=== PATIENT | female | born 1945 | race Caucasian/White ===

== ENCOUNTER → 2016-03-03 | Outpatient (CLI) | payer MEDICARE, BC ==
[~2016-03-03] MED LIST: ALBUTEROL2.5 MG/0.5 INH; AMBIEN5 MG PO; ASACOL PO; BUSPAR5 MG PO; CIPRO500 MG PO; CLONIDINE0.2 MG PO; DARVOCET N 1001 TAB PO; DELTASONE5 MG PO; DUONEB 3 MG/3 ML3 M1 INH; Duoneb 3ML 3 MG/3 ML INH; LISINOPRIL40 MG PO; MEDROL DOSEPAK4 MG PO; NORCO 5-325 TA1 EACH PO; NOVAPLUS V0.09 MG/Ac IH; OMEPRAZOLE40 MG PO; OXYBUTYNIN10 MG PO; OYSTER CALCIUM500 M1 PO; PRILOSEC20 MG PO; PRILOSEC40 MG PO; PROBIOTIC FORMU1 CA1 PO; PROBIOTIC250 MG PO; REGLAN10 MG PO; REMERON30 M1 PO; SERTRALINE HYDR50 MG PO; SINGULAIR10 MG PO; SPIRIVA18 MCG PO; SYMBICORT1 AE1 INH; VERAPAMIL120 MG PO; VICODIN 500 MG-1 TAB PO; XANAX1 MG PO; ZETIA10 MG PO; ZOLOFT100 MG PO; ZOLOFT50 MG PO
--- NOTE | ~2016-03-03 | HM ---
[place], [place] HOLTER MONITOR REPORT NAME: SARAH MEJÍA UNIT #: [id number] ROOM: DOCTOR: KATERINA LAINEZ [facility] BIRTHDATE: [birth year] DOS: 03/03/2016 1. Sinus rhythm. 2. Sinus bradycardia, 1 episode of 45 beats per minute. Average rate is 64. No significant tachyarrhythmias. One episode of nonsustained ventricular tachycardia. No conduction abnormalities noted. Holter monitor appears to be fairly benign. No diary entries are noted. No significant or symptomatic during the Holter monitor recording. ALEXANDRIA BORGES MD CM:HOLTER:HOLTER MONITOR REPORT [id number] ALEXANDRIA BORGES MD [facility]
== END | disposition home or self-care (01) ==
LOC: CARD 10:00
DX: I48.0 Paroxysmal atrial fibrillation (principal)

== ENCOUNTER 2016-07-21 21:43 | Emergency (ER) | payer MEDICARE, BC ==
[~2016-07-21] VITALS: Ht 160 cm; Wt 73.5 kg
[2016-07-21 21:49] VITALS: BP 155/100
[2016-07-21] MEDS ORDERED: K-TAB20 MEQ PO (23:49)
== END 2016-07-22 01:03 | disposition home or self-care (01) ==
LOC: ED 21:43
DX: E87.6 Hypokalemia (principal); I10 Essential (primary) hypertension; Z79.899 Other long term (current) drug therapy

== ENCOUNTER → 2016-12-19 | Day surgery (SDC) | payer MEDICARE, BC ==
[~2016-12-19] VITALS: Ht 157.4 cm; Wt 75.7 kg
[~2016-12-19] MED LIST changes: +CARTIA XT120 MG PO; +DICYCLOMINE HCL10 MG PO; +FERROUS SULFAT325 MG PO; +K-TAB20 MEQ PO; +LISINOPRIL20 MG PO; +METOPROLOL TART50 M1 PO
--- NOTE | ~2016-12-19 | O ---
[place], [place] OPERATIVE NOTE NAME: [facility]A [id number] UNIT #: [id number] ROOM: [facility] [birth year] DOS: GASTRO-ENDOSCOPIC REPORT HISTORY OF PRESENT ILLNESS: A 71-year-old patient who has presented with chief complaint of diarrhea, she says 5 to 6 BMs per day. She had been on Asacol for a year, then she quit taking Asacol because of the diarrhea. ALLERGIES: To no known medication. PAST SURGICAL HISTORY: Noncontributory. PAST MEDICAL HISTORY: Hypertension, COPD. SOCIAL HISTORY: Two pack smoker who had stopped 2 years ago. Social alcohol consumer. FAMILY HISTORY: Noncontributory. PROCEDURE: Today's procedure part of investigation is colonoscopy plus biopsy plus piecemeal polypectomy. PREMEDICATION: Versed and Diprivan. SCOPE: Olympus forward-viewing colonoscope 10L video. REPORT: After putting the patient in the left lateral position and after application of lubricant to the scope, the scope was introduced. Thereafter, under direct visualization, I advanced through the length of colon with difficulty. Difficulty being tortuosity of sigmoid colon. Right colon was approached, there was thick stool throughout ascending colon. We cannot ascertain if the cecum has been has reached or not, however, suspected to be. Photographic series from retained stool was obtained. Biopsies randomly obtained to rule out collagenous colitis and a sessile polypoid lesion in the rectal pouch with piecemeal polypectomy removed. Tolerated the procedure well, extubated. Abdomen remained soft. IMPRESSION: Tortuous sigmoid colon, retained stool, sessile colonic polyp of rectal pouch, status post piecemeal polypectomy, status post random biopsy of colon for chronic diarrhea. PLAN AND DISCUSSION: 1. I will start this patient on dicyclomine 10 mg 1 tablet every day to see if we can control her stooling and urgency. 2. I am going to get the celiac sprue panel on her to assure that she is not having gluten enteropathy. We are going to await biopsy results. She is going to visit with us in GI Clinic in 2 weeks. Once the data is available, we will do modification. She has had a CT scan of the abdomen and pelvis done in 2013. Since I remain unconvinced about her status of diarrhea yet after colonic prep having retention of the stool and I wonder if there is other occult pathology on [place], [place] OPERATIVE NOTE NAME: SARAH MEJÍA UNIT #: [id number] ROOM: DOCTOR: TALISHA ALINEZ,AMI BIRTHDATE: [birth year] board. We are going to order a CT scan of the abdomen and pelvis on her and should there be any concerns on the results, we may have to do a barium enema study on her that is due to the fact that repeatedly we have found that she has retention of stool and no clear colon, despite the preps yet complaining of diarrhea. AMI WOODALL MD CM:OPRECORD:OPERATIVE NOTE 1249 AMI WOODALL MD 12/19/166 interface
[2016-12-19 11:14] VITALS: BP 181/66
[2016-12-19 12:40] VITALS: BP 132/69
[2016-12-19 12:55] VITALS: BP 152/94
[2016-12-19 13:10] VITALS: BP 158/88
== END | disposition home or self-care (01) ==
LOC: SDC 12-16 12:30
DX: K51.90 Ulcerative colitis, unspecified, without complications (principal); D12.5 Benign neoplasm of sigmoid colon; I11.0 Hypertensive heart disease with heart failure; I50.9 Heart failure, unspecified; J44.9 Chronic obstructive pulmonary disease, unspecified; Z87.891 Personal history of nicotine dependence; K21.9 Gastro-esophageal reflux disease without esophagitis; F41.9 Anxiety disorder, unspecified; F32.9 Major depressive disorder, single episode, unspecified; Z79.899 Other long term (current) drug therapy; K63.89 Other specified diseases of intestine

== ENCOUNTER → 2016-12-26 | Outpatient (CLI) | payer MEDICARE, BC ==
[2016-12-26 09:06] LABS: CREATININE 1.04 mg/dL (0.55-1.02)
[2016-12-27 16:09] LABS: t-TRANSGLUTAMINASE (tTG) IGA <2 U/mL (0-3); t-TRANSGLUTAMINASE (tTG) IgG <2 U/mL (0-5)
[2016-12-29 14:05] LABS: ENDOMYSIAL ANTIBODY IgA Negative (Negative)
== END | disposition home or self-care (01) ==
LOC: LAB 07:38 → CT 09:00
PROVIDERS: Internal Medicine Gastroenterology
DX: K52.9 Noninfective gastroenteritis and colitis, unspecified (principal); K75.3 Granulomatous hepatitis, not elsewhere classified

== ENCOUNTER 2017-04-22 18:12 | Inpatient (IN) | payer MEDICARE ==
[~2017-04-22] VITALS: Ht 160 cm; Wt 88.1 kg
--- NOTE | ~2017-04-22 | EKG ---
[place], [place] ELECTROCARDIOGRAM REPORT NAME: SARAH MEJÍA UNIT #: [id number] ROOM: 408 DOCTOR: COLLINS MORALES MD,BOGDAN BIRTHDATE: [birth year] DOS: 04/22/2017 ELECTROCARDIOGRAM REPORT TIME: 6:36 p.m. Sinus rhythm noted with a heart rate of 93 beats per minute. LVH criteria was met for this patient. BOGDAN GUADALUPE MD CM:EKGRPT:ELECTROCARDIOGRAM REPORT [id number] BOGDAN MORALES MD
--- NOTE | ~2017-04-22 | WRIGHTHP ---
[place], [place] PATIENT HISTORY AND PHYSICAL EXAM NAME: SARAH MEJÍA [facility] #: [id number] UNIT #: [id number] ROOM: [facility] DOCTOR: ZACK COLLAZO MD BIRTHDATE: [birth year] DOS: 04/22/2017 HISTORY OF PRESENT ILLNESS: This patient is 71 years old. The patient is very well known to us. The patient comes in with increasing weakness and shortness of breath. The patient had called the office yesterday saying that she was having diarrhea, fever and she was also throwing up, thought that the patient may have a viral syndrome, Tamiflu was called in. The patient states that she did get the prescription and took 1 pill, but by evening, she was increasingly short of breath, so decided to come into the Emergency Room. By the time she arrived, she was quite hypoxic with a saturation in 67% on 6 liters of oxygen. She refused intubation, was placed on a BiPAP. She denies having any complaints this morning other than shortness of breath. Denies any chest pains or palpitations, has cough that is productive of scant amounts of sputum. Does not have any leg edema. PAST MEDICAL HISTORY: Significant for: 1. Chronic respiratory failure. 2. History of nicotine abuse. 3. Aortic aneurysm, awaiting surgery on 04/30/2017. 4. Generalized anxiety disorder. 5. Chronic back pain. 6. Benign hypertension. 7. Mixed hyperlipidemia. 8. Major depression, mild. MEDICATIONS: The patient currently on are Symbicort, breathing treatments, Xanax 1 mg t.i.d., buspirone 10 t.i.d., clonidine 0.2 daily, Bentyl 20 daily, diltiazem 120 daily, Zetia 10 daily, iron 325 daily, Prozac 40 daily, furosemide 40 daily, Fisher 5 twice a day, lisinopril 20 daily, metoprolol 50 t.i.d., Remeron 30 at bedtime, omeprazole 40 daily, Zoloft 100 daily. SOCIAL HISTORY: Smoker, but has not been smoking for the last few months. Denies using any alcohol. Lives at home with her . PHYSICAL EXAMINATION: GENERAL: She is awake and alert and oriented this morning. VITAL SIGNS: Blood pressure is 139/75, pulse of 80, respirations 25, temperature 99.1. LUNGS: Diminished breath sounds, scattered wheezes and rhonchi. HEART: Regular. ABDOMEN: Obese, soft, nontender. EXTREMITIES: Without any edema. ASSESSMENT AND PLAN: 1. Acute hypoxic respiratory failure. The patient was placed on BiPAP and she refused intubation. 2. Continue oxygen and breathing treatments. Dr. Santos has been consulted. 3. Chronic respiratory failure from chronic obstructive pulmonary disease with acute exacerbation. IV steroids have been ordered. 4. Acute tracheobronchitis, placed on antibiotics, also placed on her Tamiflu [place], [place] PATIENT HISTORY AND PHYSICAL EXAM NAME: SARAH MEJÍA UNIT #: [id number] ROOM: [facility] DOCTOR: ZACK COLLAZO MD BIRTHDATE: [birth year] which she has been taking at home, even though the rapid fluid has come back negative. 5. Benign hypertension, controlled. 6. Major depression. The patient somehow is on 2 SSRIs, will discontinue the Prozac. Continue sertraline and Remeron. 7. Generalized anxiety disorder, on medications with fair control, no changes being made. ZACK COLLAZO MD CM:HISPHYS:PATIENT HISTORY AND PHYSICAL EXAMINATION [id number] ZACK COLLAZO MD 04/23/17 0938 interface
--- NOTE | ~2017-04-22 | PR ---
[place], [place] PROGRESS NOTE NAME: [facility] [id number] UNIT #: [id number] ROOM: 408 DOCTOR: BOGDAN ROOT MD BIRTHDATE: [birth year] DOS: 04/25/2017 SUBJECTIVE: She has been noted unconsciousness at the present time with the respiratory distress. She has used the BiPAP, last night, when her daughter present in the room with the patient. She was not noted awake at this time. OBJECTIVE: VITAL SIGNS: Normal temperature, respiratory rate 24-22, heart rate 71-74, blood pressure 147/71 to 146/88, pulse oxygen saturation for the patient on 8 liter nasal cannula for this patient and with the simple mask was noted as a saturation of 92% saturation. HEENT: Head was atraumatic. CARDIOVASCULAR: S1, S2 audible. LUNGS: Diffuse expiratory wheezing. The patient has scattered crackles in the lungs. ABDOMEN: Mildly obese. Soft, nontender. EXTREMITIES: Without edema. LABORATORY DATA: CBC: Hemoglobin 8.2, hematocrit 27.1, WBC count normal, and platelet count was normal. IMPRESSION: 1. The patient with progressive lapse of consciousness, secondary to worsening of the respiratory failure, progressive. 2. Severe hypoxia, hypercapnic. 3. Respiratory failure. 4. Acute exacerbation of chronic obstructive pulmonary disease. 5. Comfort care code status. PLAN OF MANAGEMENT: At this time, the patient has not been doing well and noted with unconsciousness. Palliative care for the patient at this time to be continued. Hospice service should be assessed with this patient. At the present time, our prognosis of the patient remains poor. [place], [place] PROGRESS NOTE NAME: SARAH MEJÍA UNIT #: [id number] ROOM: 408 DOCTOR: BOGDAN ROOT MD BIRTHDATE: [birth year] OBGDAN GUADALUPE MD CM:PNTRANS [id number] BOGDAN MORALES MD 04/26/17 0515 interface
--- NOTE | ~2017-04-22 | PR ---
[place], [place] PROGRESS NOTE NAME: [facility]A [id number] UNIT #: [id number] ROOM: 408 DOCTOR: KATALINA HUBER MD BIRTHDATE: [birth year] DOS: 04/24/2017 SUBJECTIVE: The patient is still quite short of breath, wearing a BiPAP and getting nebulizer treatments. OBJECTIVE: VITAL SIGNS: Blood pressure 154/96, heart rate 84 beats per minute, breathing 20 times per minute, temperature 98.6 degrees Fahrenheit. GENERAL APPEARANCE: The patient is alert and oriented x 3, in no visible distress. HEENT AND NECK: Exam within normal limits. CARDIOVASCULAR SYSTEM: Heart rate is regular in rate and rhythm. S1 and S2 normally audible. LUNGS: Decreased breath sounds all over with expiratory wheezing. ABDOMEN: Soft, nontender. No obvious organomegaly. Bowel sounds are present. EXTREMITIES: Without significant cyanosis or edema. IMPRESSION: 2. The patient with acute hypoxemic ventilatory failure with shortness of breath and wheezing, being treated with BiPAP and bronchodilators, corticosteroids. Thread Spooler, Dr. Santos, is following. 3. Acute over chronic respiratory failure, being treated with BiPAP. 4. Acute exacerbation of severe underlying chronic obstructive pulmonary disease. 5. Benign essential hypertension being treated and controlled. 6. Major depression, recurrent, moderate, treated with Prozac. The patient also on Remeron. 7. Generalized anxiety disorder, being followed closely and treated. KATALINA HUBER MD CM:PNTRANS [phone] KATALINA HUBER MD 04/24/172053 interface
--- NOTE | ~2017-04-22 | DS ---
[place], [place] DISCHARGE SUMMARY NAME: SARAH MEJÍA [facility] #: [id number] UNIT #: [id number] ROOM: 408 DOCTOR: KATALINA HUBER MD BIRTHDATE: [birth year] DOS: 04/25/2017 DISCHARGE DIAGNOSES: 1. Chronic respiratory failure and end-stage lung disease. The patient is going home with hospice and her for end-of-life care. 2. Chronic ventilatory failure from advanced chronic obstructive pulmonary disease. 3. Benign essential hypertension. 4. Adult failure to thrive. 5. Major depression, recurrent, moderate. 6. Generalized anxiety disorder. 7. Nicotine smoke dependence. 8. Aortic aneurysm. 9. Chronic back pains. 10. Mixed hyperlipidemia. The patient was admitted by Dr. Libertad Tirado for acute over chronic respiratory failure. After admission, the patient was put on BiPAP and treated with bronchodilators, corticosteroids and antibiotics and BiPAP. The patient did not want BiPAP and finally after discussing the situation with Dr. Santos, the computer systems hardware analyst who was on consult, the patient and her and rest of the family decided to take her home with hospice care, which is being arranged. The patient appears comfortable, although she has some respiratory difficulty. The patient is being sent home with bronchodilators, morphine, Ativan and atropine drops and hospice has been consulted. A hospital bed will be arranged at home. Major depression, recurrent, moderate, being treated with Prozac, controlled. Benign essential hypertension. The patient on diltiazem. Blood pressures are monitored, treated and controlled. The patient also takes lisinopril and metoprolol. GERD and esophagitis, asymptomatic, on omeprazole. Severe generalized anxiety disorder, treated with Xanax on regular basis. The patient also takes buspirone. The patient maintains a DNR/comfort care code status and hospice care was discussed at great length with the family. One hour was spent with the patient, her family in discussions and also arranging for discharge to home today required more than 1 hour of my time. Acute tracheobronchitis, treated as mentioned above. Adult failure to thrive with disability. Hospital bed is being arranged. We took bedsore precautions including every 2 hour turning and we took fall precautions. LABORATORY DATA: Sputum cultures are pending. Normal serum electrolytes. Hemoglobin 8.2. Blood cultures were negative. Chest x-ray showed trace [facility] [place], [place] DISCHARGE SUMMARY NAME: SARAH MEJÍA UNIT #: [id number] ROOM: 408 DOCTOR: CECILE LAINEZ,KATALINA Aldrich BIRTHDATE: [birth year] pulmonary edema, some chronic pulmonary fibrosis and scarring, but no signs of pneumonia. BUN and creatinine 9 and 1.3, otherwise normal serum electrolytes. DISCHARGE MANAGEMENT: Morphine 10 mg every hour as needed, Ativan 2 mg every 4 hours as needed for agitation, ondansetron 8 mg 3 times a day as needed for nausea, vomiting, Zoloft 100 mg a day, lisinopril 20 mg a day, Zetia 10 mg, Cardizem-CD 120 mg a day, Bentyl 10 mg daily, Medrol Dosepak, mirtazapine 30 mg at bedtime, metoprolol 50 mg b.i.d., Dulera twice a day inhalations, DuoNeb q.i.d., Xanax 1 mg 3 times a day, buspirone 5 mg every 8 hours, hydrocodone 5/325 mg b.i.d. p.r.n. for pain. KATALINA HUBER MD CM:MARISELA [phone] KATALINA HUBER MD 04/25/171945 interface
--- NOTE | ~2017-04-22 | CON ---
[place], [place] REPORT OF CONSULTATION NAME: SARAH MEJÍA [facility] #: [id number] UNIT #: [id number] ROOM: 408 DOCTOR: COLLINS MORALES MD,BOGDAN BIRTHDATE: [birth year] DOS: 04/23/2017 CONSULTATION REQUESTED BY: Libertad Tirado MD REASON FOR CONSULTATION: Assess the patient for acute respiratory failure. HISTORY OF PRESENT ILLNESS: This is a 71-year-old white female who has been well known to me with past history of severe COPD with chronic hypercapnic and hypoxic respiratory failure. The patient stated symptoms of increasing shortness of breath occurring for the past 2 to 3 days. Later on the patient started with symptoms of body aches and pains as well. Symptoms were noted progressively worsening. Associated with diarrhea as well. She has contacted the office of Dr. Libertad Tirado yesterday and [facility] The patient suspecting influenza infection. The patient did took one medication yesterday. She stated symptoms of shortness of breath progressed very severely requiring assessment in the Emergency Room. The patient presented to the Emergency Room. Pulse oxygen saturation noted only 67%. In the Emergency Room was started on 6 liters oxygen supplementation nasal cannula to improve the hypoxia. Arterial blood gas was also done for the patient, which shows acute hypercarbia, chronic hypercarbia. She had been admitted to Intensive Care Unit. The patient was started on BiPAP, which was received only for short period of time by the patient. The patient denies symptoms of chest pain. Later on the oxygen supplementation has been gradually decreased. Denies symptoms of chest pain or hemoptysis. Symptoms of cough has been noted mild to moderate without any sputum expectoration. Shortness of breath has been noted, but somewhat decreased from admission. Wheezing was noted with tightness in the chest. REVIEW OF SYSTEMS: CONSTITUTIONAL: Symptoms of fatigue and tiredness reported, not sure about fever or chills. EYES: Denies any burning, redness, discharge or pain or diplopia. CARDIOVASCULAR: Denies anginal pain, edema, pain of the lower extremities. EARS, NOSE, THROAT: Denies sore throat, hoarseness, otalgia, postnasal drainage or epistaxis. GASTROINTESTINAL SYMPTOMS: The patient has reported diarrhea shortly and has not noted continuous at this time. There were symptoms of hematemesis, melena, or hematochezia. GENITOURINARY SYMPTOMS: Denies dysuria, suprapubic pain, hematuria, or urinary retention. MUSCULOSKELETAL: No acute joint pain, redness, or tenderness. SKIN: Denies any abnormal lesions or rashes. CENTRAL NERVOUS SYSTEM: Denies any symptoms of seizures or tingling sensation of the extremities. The remaining systems were reviewed, which were noted all negative. PAST MEDICAL HISTORY: 1. Has been noted with history of advanced end-stage COPD with FEV1 about 30%. 2. Chronic hypoxic respiratory failure requiring oxygen supplementation 3 liter nasal cannula. 3. Chronic hypercapnic respiratory secondary to severely advanced COPD as well. [place], [place] REPORT OF CONSULTATION NAME: SARAH MEJÍA UNIT #: [id number] ROOM: [employer] DOCTOR: COLLINS MORALES MD,BOGDAN BIRTHDATE: [birth year] 4. Severe generalized anxiety disorder. 5. History of essential hypertension. 6. Congestive heart failure with diastolic dysfunction. 7. Chronic atrial fibrillation. 8. Gastroesophageal reflux disease. 9. History of depression as well. PAST SURGICAL HISTORY: Noted essentially no major surgeries in the past. SOCIAL HISTORY: The patient is , has 2 children, lived at home prior to admission to the hospital. Denies history of alcohol use or illicit drug use. The patient has been known with tobacco use from the age of [age] years old, a pack of cigarettes per day that has not been continued as per patient since November 2013. She does not have any occupation related pulmonary exposure. FAMILY HISTORY: Father at age 3939 years old, complication of intracerebral hemorrhage. Mother at age 6868 years old, complication related to the metastatic breast cancer. CURRENT MEDICATIONS: Administered noted use of sertraline, lisinopril, ferrous sulfate, Zetia, Cardizem-CD, omeprazole, IV Solu-Medrol 60 mg q. 8 hours, Remeron, metoprolol tartrate 50 mg b.i.d., Dulera 200/5 two inhalations b.i.d., IV Zithromax, BuSpar, Tamiflu, and other p.r.n. medications administration. DRUG ALLERGIES: Noted as no known drug allergies. PHYSICAL EXAMINATION: GENERAL: A 71-year-old female patient who has been noted comfortable on oxygen supplementation about 4 liters nasal cannula, comfortably resting as seen in the Intensive Care Unit. The patient's height was recorded as 5 feet 3 inches, weight 194 pounds, BMI 30.5. VITAL SIGNS: Temperature 99.7 degree Fahrenheit, noted low grade fever intermittently since admission in the last 24 hours. Respiratory rate range between 18-24. Heart rate 93-70, blood pressure 150/70-146/67. Pulse oxygen saturation of the patient was noted as 97% with the Venturi mask earlier. HEENT: Examination shows head was atraumatic. Eyes nonicterus. NECK: Supple. CARDIOVASCULAR: S1, S2 audible. LUNGS: Diffuse reduction in breath sounds bilaterally with expiratory wheezing without any crackles. ABDOMEN: Soft, flat, nontender, bowel sounds present. EXTREMITIES: The patient noted without any edema, clubbing or cyanosis. CENTRAL NERVOUS SYSTEM: Cranial nerves 2-12 intact. No focal deficit. MUSCULOSKELETAL: Without any acute deformities. LABORATORY DATA: The lactic acid yesterday in the Emergency Room 2.1. PT, PTT yesterday in the Emergency Room, normal. CMP yesterday in the Emergency Room, BUN 9, creatinine 1.36, glucose 157. Carbon dioxide 36. Total protein 6.3, albumin was mildly decreased. CBC: Hemoglobin 8.5 and hematocrit 28.1, WBC count normal, platelet count was normal. Follow up lactic acid 0.6. Influenza [place], [place] REPORT OF CONSULTATION NAME: SARAH MEJÍA UNIT #: [id number] ROOM: [employer] DOCTOR: COLLINS MORALES MD,[facility] BIRTHDATE: [birth year] A and B, nasal washing antigens were noted as negative. Chest x-ray just 1 view done in the emergency room was noted with increased interstitial marking without any gross pulmonary infiltration. IMPRESSION: 1. The patient who has been currently admitted to the hospital noted with suspected diagnosis of influenza infection, complicated with severe acute hypercapnic and hypoxic respiratory failure, chronic hypoxic and hypercapnic respiratory failure. 2. Severe general anxiety disorder. 3. Past history of nicotine dependence. 4. Anemia, most likely chronic disease. 5. The patient with acute kidney injury. The patient was also noted with elevation in creatinine, most likely related to the current acute volume depletion and possibility of early acute sepsis as well is a likely cause. PLAN OF MANAGEMENT: Obtain another arterial blood gas of the patient to reassess the need for adjustment on the BiPAP treatment. The patient will be continued on current dose of high dose corticosteroids, Solu-Medrol 60 mg q. 8 hours. DuoNeb will be continued every 4 hours. She has already been collected culture for the urine as well as the blood. Sputum culture was ordered, which was pending. Titrate oxygen supplementation to maintain oxygen saturation 92% or greater. The patient may be transferred from the intensive unit to telemetry floor as the patient does not want any kind of resuscitation including CPR or others. Supportive therapy, plan of management as in progress. Encourage the patient's oral supplementation of the fluids. Obtain CMP and CBC in the morning as well. Continuation of flu medication. Usual care, other supportive plan of therapy and care. Thank you for allowing me to participate in the care of this patient. BOGDAN GUADALUPE MD CM:CONSTR:REPORT OF CONSULTATION 1356 04/24/17 0105 interface
--- NOTE | ~2017-04-22 | PR ---
[place], [place] PROGRESS NOTE NAME: SARAH MEJÍA [facility] #: [id number] UNIT #: [id number] ROOM: 408 DOCTOR: COLLINS MORALES MD,BOGDAN BIRTHDATE: [birth year] DOS: 04/24/2017 PULMONARY PROGRESS NOTE SUBJECTIVE: She has been noted with increased wheezing this morning at the time of the assessment. Cough has been noted moderately and noted nonproductive. Denies symptoms of chest pain, shortness breath was noted significantly as well. She was transferred to telemetry floor from the ICU yesterday. She has used the BiPAP for about 6 hours last night. The arterial blood gas was attempted for the patient not noticed exacerbation obtaining arterial blood gases after a few attempts. The patient denies symptoms of headache. General weakness, fatigue were noted. She was also noted with increased anxiety. Denies symptoms of hematuria. Denies any symptoms of abdominal pain. Remaining review of systems of the patient noted as negative. OBJECTIVE: VITAL SIGNS: For the patient which were recorded showed the temperature noted as normal. The respiratory rate of the patient recorded as 20-24, heart rate 84-94, blood pressure 154/96 to 166/93. HEENT: Shows head was atraumatic. Eyes nonicterus. NECK: Supple. Oral mucosa was dry. CARDIOVASCULAR: S1, S2 is audible. LUNGS: The patient noted diffuse expiratory wheezing with decreased breath sounds bilaterally. ABDOMEN: Soft with mild obesity. Bowel sounds present without any tenderness. SKIN: Visible skin. No lesions or rashes. MUSCULOSKELETAL SYMPTOMS: Without any acute deformities. CENTRAL NERVOUS SYSTEM: Remains intact. LABORATORY DATA: The cultures of the blood for the patient on 04/22/2017 showed no bacterial growths. IMPRESSION: 1. The patient noted with severe acute hypercapnic and hypoxic respiratory failure was noted at the present time with severe exacerbation of chronic obstructive pulmonary disease, worsening of the respiratory symptoms were noted today on assessment, noted severe expiratory wheezing. 2. The patient with a general anxiety disorder as well. 3. Acute bronchitis. 4. General weakness and fatigue. PLAN OF TREATMENT: The patient will be started on IV Rocephin for the additional treatment of the tracheobronchitis. The patient was also noted elevation of creatinine and will be ordered in a BMP of the patient to be done tomorrow morning. Collect the sputum for Gram stain and culture. The patient is able to expectorate sputum. Continue current high dose of corticosteroids, bronchodilators every 4 hours and use of the BiPAP. Additional treatment changes will be made for this patient based on the progression of the illness. Usual care. Supportive therapy, plan of management and other treatment for the patient as well. The patient's code status noted comfort care at this time, [place], [place] PROGRESS NOTE NAME: SARAH MEJÍA UNIT #: [id number] ROOM: [facility] DOCTOR: COLLINS MORALES MD,BOGDAN BIRTHDATE: [birth year] conservative treatment to be continued with the use of the BiPAP that was accepted as a part of the treatment by the patient with current code status. DVT prophylaxis to be continued. All other treatment therapy, plan of management and care. BOGDAN GUADALUPE MD CM:PNTRANS [id number] BOGDAN MORALES MD 04/25/17220 interface
[2017-04-22 18:31] LABS: ABG BASE EXCESS 6.3 mmol/L (-2.0-2.0); ABG HCO3 34.3 mmol/l (22-26); ARTERIAL BLOOD GAS PH 7.266 (7.35-7.45)
[2017-04-22 18:35] VITALS: BP 150/70
[2017-04-22 18:36] LABS: ABG O2 SATURATION 100.1 % (95-97); ARTERIAL BLOOD GAS PCO2 78.3 mmHg (35-45)
[2017-04-22 18:58] LABS: ACT PARTIAL THROMBO TIME 21.9 SECONDS (20.8-31.5)
[2017-04-22 19:00] VITALS: BP 132/88
[2017-04-22 19:05] LABS: ALBUMIN 3.2 gm/dl (3.1-4.5); ALKALINE PHOSPHATASE 98 U/L (45-117); BUN 9 mg/dl (7-24); CHLORIDE 96 mmol/L (98-107); CREATININE 1.36 mg/dL (0.55-1.02); POTASSIUM 3.6 mmol/L (3.5-5.1); SGOT/AST 18 IU/L (3-35); SGPT/ALT 20 U/L (12-78); SODIUM 136 mmol/L (136-145); TOTAL PROTEIN 6.3 gm/dL (6.4-8.2)
[2017-04-22 19:08] LABS: TROPONIN I < 0.015 ng/ml (<0.045)
[2017-04-22 19:31] VITALS: BP 130/60
[2017-04-22 19:44] VITALS: BP 148/53
[2017-04-22 20:03] LABS: BASO % 0.2 % (0.0-1.0); HEMATOCRIT 28.1 % (37.0-47.0); HEMOGLOBIN 8.5 g/dl (12.0-16.0); LYMPH # 0.4 10*3/uL (1.3-4.4); LYMPH % 7.9 % (27.0-41.0); MEAN CELL VOLUME 91.5 fl (81.0-99.0); MEAN CORPUSCULAR HGB 27.7 pg (27.0-31.0); MEAN CORPUSCULAR HGB CONC 30.2 g/dl (33.0-37.0); MEAN PLATELET VOLUME 10.3 fl (9.6-12.3); MONO # 0.2 10*3/uL (0.1-1.0); NEUT # 4.3 10*3/uL (2.3-7.9); NEUT % 88.1 % (47.0-73.0); PLATELET COUNT AUTOMATED 161 10*3/uL (130-400); RED BLOOD COUNT 3.07 10*6/uL (4.10-5.10); RED CELL DISTRI WIDTH 15.4 % (0-14.5); WHITE BLOOD COUNT 4.9 10*3/uL (4.8-10.8)
[2017-04-22] MEDS ORDERED: CATAPRES0.2 M1 PO (21:07)
[2017-04-22] MEDS ORDERED: LASIX40 MG PO (21:08)
[2017-04-22] MEDS ORDERED: COLCRYS0.6 M1 PO (21:09)
[2017-04-22] MEDS ORDERED: ZOFRAN8 M1 PO (21:12)
[2017-04-22] MEDS ORDERED: PROZAC40 M1 PO (21:13)
[2017-04-22] MEDS ORDERED: PROMETHAZINE25 M1 PO (21:14)
[2017-04-23] VITALS (7 sets, daily range): BP systolic 126–166; BP diastolic 58–93
[2017-04-23 02:36] LABS: BILIRUBIN NEGATIVE (NEGATIVE); BLOOD 3+ (NEGATIVE); CLARITY SL CLOUDY (CLEAR); COLOR YELLOW (YELLOW); GLUCOSE NEGATIVE (NEGATIVE); KETONE NEGATIVE (NEGATIVE); LEUKO ESTERASE NEGATIVE (NEGATIVE); NITRITE NEGATIVE (NEGATIVE); PH 5.5 (5.0-9.0); UROBILINOGEN 0.2 E.U./dl (0.2-1.0)
[2017-04-23 02:45] LABS: BACTERIA 2+; EPITHELIAL CELLS 20-25; HYALINE CAST 40-45; RBC 41-50 rbc/hpf (0-2)
[2017-04-24 08:00] VITALS: BP 154/96
[2017-04-24 12:00] VITALS: BP 150/88
[2017-04-24 14:00] VITALS: BP 150/88
[2017-04-24 16:00] VITALS: BP 140/76
[2017-04-24 20:00] VITALS: BP 140/80
[2017-04-25] VITALS: BP 150/90
[2017-04-25 06:18] LABS: HEMATOCRIT 27.1 % (37.0-47.0); HEMOGLOBIN 8.2 g/dl (12.0-16.0); LYMPH # 0.7 10*3/uL (1.3-4.4); LYMPH % 8.6 % (27.0-41.0); MEAN CELL VOLUME 92.8 fl (81.0-99.0); MEAN CORPUSCULAR HGB 28.1 pg (27.0-31.0); MEAN CORPUSCULAR HGB CONC 30.3 g/dl (33.0-37.0); MEAN PLATELET VOLUME 9.9 fl (9.6-12.3); MONO # 0.4 10*3/uL (0.1-1.0); NEUT # 6.9 10*3/uL (2.3-7.9); NEUT % 85.5 % (47.0-73.0); PLATELET COUNT AUTOMATED 197 10*3/uL (130-400); RED BLOOD COUNT 2.92 10*6/uL (4.10-5.10); RED CELL DISTRI WIDTH 15.9 % (0-14.5); WHITE BLOOD COUNT 8.1 10*3/uL (4.8-10.8)
[2017-04-25 06:34] LABS: ALBUMIN 3.4 gm/dl (3.1-4.5); BUN 19 mg/dl (7-24); CHLORIDE 88 mmol/L (98-107); CREATININE 0.87 mg/dL (0.55-1.02); POTASSIUM 4.2 mmol/L (3.5-5.1); SGOT/AST 26 IU/L (3-35); SGPT/ALT 25 U/L (12-78); SODIUM 132 mmol/L (136-145); TOTAL PROTEIN 6.8 gm/dL (6.4-8.2)
[2017-04-25 06:35] LABS: ALKALINE PHOSPHATASE 83 U/L (45-117)
[2017-04-25 08:00] VITALS: BP 146/88
[2017-04-25 12:00] VITALS: BP 147/71
[2017-04-25] MEDS ORDERED: MEDROL DOSEPAK4 MG PO (14:29)
[2017-04-25] MEDS ORDERED: ATIVAN ORAL C2 MG/ML PO (14:38)
[2017-04-25] MEDS ORDERED: MORPHINE S100 MG/5 M PO (14:38)
[2017-04-25] MEDS ORDERED: ATROPINE SULFATE2 M2 OP (14:38)
[2017-04-25] MEDS ORDERED: HOSPBED (14:55)
== END 2017-04-25 18:25 | disposition hospice, home (50) | DRG 682 ==
LOC: ED 18:12 → 4E 18:48 → EDHOLD 18:48 → ICCU 18:48 → 4E 04-23 12:42
PROVIDERS: Emergency Medicine; Internal Medicine Critical Care Medicine
PROC: 5A09357 Assistance with Respiratory Ventilation, Less than 24 Consecutive Hours, Continuous Positive Airway Pressure (ICD-10-PCS; principal; 2017-04-22)
PROC: 5A09357 Assistance with Respiratory Ventilation, Less than 24 Consecutive Hours, Continuous Positive Airway Pressure (ICD-10-PCS; 2017-04-23)
PROC: 5A09357 Assistance with Respiratory Ventilation, Less than 24 Consecutive Hours, Continuous Positive Airway Pressure (ICD-10-PCS; 2017-04-24)
PROC: 5A09357 Assistance with Respiratory Ventilation, Less than 24 Consecutive Hours, Continuous Positive Airway Pressure (ICD-10-PCS; 2017-04-25)
DX: N17.0 Acute kidney failure with tubular necrosis (principal); J96.21 Acute and chronic respiratory failure with hypoxia; Z99.11 Dependence on respirator [ventilator] status; J96.22 Acute and chronic respiratory failure with hypercapnia; J44.1 Chronic obstructive pulmonary disease with (acute) exacerbation; I50.30 Unspecified diastolic (congestive) heart failure; F33.1 Major depressive disorder, recurrent, moderate; J44.0 Chronic obstructive pulmonary disease with (acute) lower respiratory infection; I48.2 Chronic atrial fibrillation; I11.0 Hypertensive heart disease with heart failure; D64.9 Anemia, unspecified; F41.1 Generalized anxiety disorder; Z66 Do not resuscitate; Z51.5 Encounter for palliative care; K21.0 Gastro-esophageal reflux disease with esophagitis; R62.7 Adult failure to thrive; F17.200 Nicotine dependence, unspecified, uncomplicated; G89.29 Other chronic pain; E78.2 Mixed hyperlipidemia; I71.9 Aortic aneurysm of unspecified site, without rupture; J20.9 Acute bronchitis, unspecified; Z53.29 Procedure and treatment not carried out because of patient's decision for other reasons; Z79.01 Long term (current) use of anticoagulants; Z79.899 Other long term (current) drug therapy; Z83.3 Family history of diabetes mellitus; Z82.49 Family history of ischemic heart disease and other diseases of the circulatory system; Z72.89 Other problems related to lifestyle; Z82.3 Family history of stroke; Z80.3 Family history of malignant neoplasm of breast